=== PATIENT | female | born 1995 | race Caucasian/White ===

== ENCOUNTER 2024-04-21 17:53 | Emergency (ER) | payer OTHER, SELFPAY ==
[2024-04-21] VITALS (15 sets, daily range): BP systolic 132–147; BP diastolic 82–105; PULSE 65–85; RESP 16; TEMP 36.8; O2SAT 97–100; BMI 39.9
--- NOTE | 2024-04-21 18:20 | CRLHL7_ITS ---
For Patients: As a result of the Century Cures Act, medical imaging exams and procedure reports are released immediately into your electronic medical record. You may view this report before your referring provider. If you have questions, please contact your health care provider. 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 No suspicious hepatic lesions. Status post cholecystectomy. No biliary ductal dilatation. The spleen, pancreas, and bilateral adrenal glands are unremarkable. The kidneys are normal in size and perfused in a normal fashion. There is no suspicious enhancing renal mass. Simple appearing renal cysts bilaterally. No renal calculi or hydroureteronephrosis. The bladder is unremarkable in appearance. Status post hysterectomy. The left ovary is unremarkable in appearance. There is a large right simple appearing ovarian cyst measuring approximately 5.1 centimeters in greatest dimension. There is no evidence of bowel obstruction or inflammation. The appendix is normal. Few colonic diverticula without CT evidence of acute diverticulitis. No significant free fluid. No free air. No abscess. No abdominopelvic lymphadenopathy. Questionable mild narrowing at the origin of the celiac axis; otherwise, the vasculature is unremarkable. Soft tissue/musculoskeletal: Unremarkable Impression: 1. No CT evidence of an acute process involving the abdomen or pelvis. 2. Simple appearing right ovarian cyst measuring 5.1 centimeters in greatest dimension. O-RADS 2 - almost certainly benign. Recommend follow-up pelvic ultrasound in 8-12 weeks for reassessment. Please note that all CT scans at this facility use dose modulation, iterative reconstruction, and/or weight-based dosing when appropriate to reduce radiation dose to as low as reasonably achievable. Dictated by Jamar Cross MD @ 04/21/2024 7:34:40 PM (Electronically Signed)
--- NOTE | 2024-04-21 18:22 | ED_ITS ---
HPI - Abdominal Pain General Chief Complaint: Abdominal Pain Stated Complaint: Abdominal pain Time Seen by Provider: 04/21/24 17:56 History of Present Illness HPI narrative: This 29-year-old female comes in reporting right upper quadrant abdominal pain over the past day or so. She states that there is always an element of pain there but she definitely gets some spikes of increased pain. She reports that taking food seems to make the pain worse. She has had a cholecystectomy. She also had a hysterectomy done 4 months ago and since then has had several complications with abscess and repeat surgery. She arrives here with normal vital signs. Related Data Home Medications ?Medication ?Instructions ?Recorded ?Confirmed lisinopril 20 1 tab PO DAILY 03/18/24 04/21/24 mg-hydrochlorothiazide 12.5 mg tablet methylphenidate HCl 20 mg biphasic 40 mg PO DAILY 03/18/24 04/21/24 50-50 capsule,extended release albuterol sulfate 90 mcg/actuation 1 - 2 puff inhalation Q4H PRN 04/21/24 04/21/24 aerosol inhaler (Ventolin HFA) cetirizine 10 mg tablet 10 mg PO DAILY 04/21/24 04/21/24 fluticasone 100 mcg-salmeterol 50 1 ea inhalation BID 04/21/24 04/21/24 mcg/dose blistr powdr for inhalation (Nichol Butt) Previous Rx's ?Medication ?Instructions ?Recorded hydrocodone 5 mg-acetaminophen 325 1 tab PO Q4-6H PRN pain #15 tabs 04/21/24 mg tablet ketorolac 10 mg tablet 10 mg PO Q8H 5 days #15 tabs 04/21/24 ondansetron HCl 4 mg tablet 4 mg PO Q6H #10 tabs 04/21/24 Allergies Allergy/AdvReac Type Severity Reaction Status Date / Time metformin Allergy Mild Rash Verified 04/21/24 17:57 Review of Systems Status of ROS Reports: 10 or more systems reviewed and unremarkable except as noted in History and below Narrative Constitutional: No fevers, no weight gain or loss. Eyes: No discharge. No vision changes. HENT: No congestion, no sore throat, no ear pain. Cardiovascular: No chest pain, no palpitations. Respiratory: No shortness of breath, no wheezes, no cough. Gastrointestinal: No vomiting, no diarrhea. Abdominal pain as described above. Genitourinary: No dysuria, no hematuria. Musculoskeletal: Normal range of motion. Skin: No rashes, no pruritis. Neurological: No dizziness, weakness, sensory change, speech change. Endo/Heme/Allergies: No bruising or bleeding. No polydipsia. Pysch: no suicidality, no anxiety, no insomnia. All other systems reviewed and are negative. PFSH PFS Social History Smoking Status: Never smoker How often do you have a drink containing alcohol: 2-4 times a month AUDIT-C Alcohol total score: 2 Non-prescribed substance use: denies use Exam Narrative: Exam Narrative: Constitutional: Well-developed, well-nourished, no acute distress. HEENT: Normocephalic, atraumatic. Neck: Normal range of motion. Nontender. Supple. Heart: Regular. No murmurs. Normal rate. Intact distal pulses. Lungs: Clear to auscultation. No chest discomfort. No wheezes, rhonchi, or rales. Abdomen: Normal bowel sounds. Tenderness located in the right upper quadrant. No rebound tenderness. Genitalia: Deferred. Back: No midline tenderness. Normal range of motion. Extremities: Normal range of motion. No injury. Skin: Intact. No rash. Warm. No erythema or pallor. Neurologic: No altered sensation. No weakness. Alert and oriented. Psychiatric: No suicidality. No anxiety or depression. No insomnia. Nursing notes and vitals signs are reviewed. Const: Vital Signs, click to edit/add: Vital Signs - 24 hr 04/21/24 17:58 04/21/24 18:10 04/21/24 18:11 Temperature 98.2 F Pulse Rate 81 78 Pulse Rate [Pulse Oximeter] 85 Respiratory Rate 16 Blood Pressure 144/105 H Blood Pressure [Ri ght Upper Arm] 147/104 H Pulse Oximetry 99 97 97 Oxygen Delivery Me thod Room Air 04/21/24 18:15 04/21/24 18:32 04/21/24 18:33 Temperature Pulse Rate 81 79 Pulse Rate [Pulse Oximeter] Respiratory Rate Blood Pressure 140/85 H Blood Pressure [Ri ght Upper Arm] Pulse Oximetry 97 97 Oxygen Delivery Me thod 04/21/24 18:52 04/21/24 19:00 04/21/24 19:02 Temperature Pulse Rate 82 71 68 Pulse Rate [Pulse Oximeter] Respiratory Rate Blood Pressure 134/82 Blood Pressure [Ri ght Upper Arm] Pulse Oximetry 99 98 98 Oxygen Delivery Me thod 04/21/24 19:15 04/21/24 19:30 Temperature Pulse Rate 71 69 Pulse Rate [Pulse Oximeter] Respiratory Rate Blood Pressure Blood Pressure [Ri ght Upper Arm] Pulse Oximetry 99 98 Oxygen Delivery Me thod Course Vital Signs Vital signs: Initial Vital Signs Temperature 98.2 F 04/21/24 17:58 Temperature Source Temporal Artery Scan 04/21/24 17:58 Pulse Rate 85 04/21/24 17:58 Respiratory Rate 16 04/21/24 17:58 Blood Pressure 147/104 H 04/21/24 17:58 Blood Pressure Mean 118 H 04/21/24 17:58 Blood Pressure Position High-Fowlers 04/21/24 17:58 Pulse Oximetry 99 04/21/24 17:58 Oxygen Delivery Method Room Air 04/21/24 17:58 Vital Signs Temperature 98.2 F 04/21/24 17:58 Pulse Rate 85 04/21/24 17:58 Respiratory Rate 16 04/21/24 17:58 Blood Pressure 147/104 H 04/21/24 17:58 Pulse Oximetry 99 04/21/24 17:58 Oxygen Delivery Method Room Air 04/21/24 17:58 Temperature 98.2 F 04/21/24 17:58 Pulse Rate 69 04/21/24 19:30 Respiratory Rate 16 04/21/24 17:58 Blood Pressure 134/82 04/21/24 19:02 Pulse Oximetry 98 04/21/24 19:30 Oxygen Delivery Method Room Air 04/21/24 17:58 Medications Administered Medications: Discontinued Medications Generic Name Dose Route Start Last Admin Trade Name Freq PRN Reason Stop Dose Admin Ketorolac Tromethamine 30 mg 04/21/24 18:20 04/21/24 18:38 Ketorolac 30 Mg/Ml Inj IVP 04/21/24 18:21 30 mg ONCE ONE Administration Ondansetron HCl 4 mg 04/21/24 18:20 04/21/24 18:38 Ondansetron 2 Mg/Ml Inj IVP 04/21/24 18:21 4 mg ONCE ONE Administration MDM - Abdominal Pain MDM Narrative Medical decision making narrative: This patient comes in with abdominal pain in the right side of her abdomen. She has extra concerned because of several complications of hysterectomy that occurred over the past several months where she had repeat surgeries due to abscess formation. She arrives here with normal vital signs and states that her symptoms are different than which she was experiencing previously. She has had her gallbladder out. An IV was established and CT imaging is obtained of the abdomen and pelvis. This shows no acute findings except for the presence of a 5 cm cyst on the right ovary. The patient does have a history of PCOS. There are no other findings to explain the patient's pain. This was very reassuring to the patient along with normal vital signs and lab results. She is okay to be discharged home. I did provide prescriptions for Toradol, Winkelman, and Zofran. Lab Data Labs: Lab Results 04/21/24 Range/Units 18:30 WBC 9.41 (4.50-11.00) K/uL RBC 4.53 (4.00-5.20) m/uL Hgb 12.9 (12.0-16.0) gm/dL Hct 38.3 (33.0-51.0) % MCV 85 (80-100) fL MCH 29 (26-34) pg MCHC 34 (32-36) gm/dL RDW Coeff of Carl 13.3 (11.5-15.5) % Plt Count 243 (140-440) K/uL Neut % (Auto) 59.5 (42.0-72.0) % Lymph % (Auto) 29.6 (20-44) % Mccormick % (Auto) 7.0 (0.0-11.0) % Eos % (Auto) 3.2 (0.0-7.0) % Baso % (Auto) 0.4 (0.0-3.0) % Neut # (Auto) 5.59 (1.7-7.0) K/uL Lymph # (Auto) 2.79 (0.90-2.90) K/uL Mccormick # (Auto) 0.70 (0.00-0.90) K/UL Eos # (Auto) 0.30 (0.00-0.50) K/uL Baso # (Auto) 0.04 (0.00-0.30) K/uL Abs Immat Gran (auto) 0.03 (0.00-0.30) K/uL Imm/Tot Granulo (auto) 0.3 % Sodium 136 (135-149) mmol/L Potassium 3.7 (3.6-5.1) mmol/L Chloride 104 (96-114) mmol/L Carbon Dioxide 25 (20-32) mmol/L Anion Gap 7 (7-15) mEq/L BUN 14 (5-24) mg/dL Creatinine 0.8 (0.5-1.5) mg/dL Estimated Creat Clear 85.06 Estimated GFR 102 ml/min Glucose 96 (60-115) mg/dL Calcium 9.5 (8.4-10.6) mg/dL Imaging Data CT scan - abdomen: Radiologist's impression: 1. No CT evidence of an acute process involving the abdomen or pelvis. 2. Simple appearing right ovarian cyst measuring 5.1 centimeters in greatest dimension. O-RADS 2 - almost certainly benign. Recommend follow-up pelvic ultrasound in 8-12 weeks for reassessment. Discharge Plan Discharge Clinical Impression: Abdominal pain, Ovarian cyst Patient Disposition: Home, Self-Care Condition: Stable Additional Instructions: Take medications as needed and indicated. Follow up with MD or return if worsening. Prescriptions: New hydrocodone-acetaminophen 5-325 mg tablet 1 tab PO Q4-6H PRN (Reason: pain) Qty: 15 0RF ondansetron HCl 4 mg tablet 4 mg PO Q6H Qty: 10 0RF ketorolac 10 mg tablet 10 mg PO Q8H 5 Days Qty: 15 0RF No Action lisinopril-hydrochlorothiazide 20-12.5 mg tablet 1 tab PO DAILY methylphenidate HCl 20 mg capsule,ER biphasic 50-50 40 mg PO DAILY cetirizine 10 mg tablet 10 mg PO DAILY fluticasone propion-salmeterol [Wixela Inhub] 100-50 mcg/dose blister with device 1 ea INHALATION BID albuterol sulfate [Ventolin HFA] 90 mcg/actuation HFA aerosol inhaler 1 - 2 puff INHALATION Q4H PRN Follow Up/Referrals: Provider,Not a Local [Primary Care Provider] - Stand Alone Forms: [employer] Info Instructions
[2024-04-21 18:38] LABS: Basophils Absolute Auto 0.04 K/uL (0.00-0.30); Basophils Percent Auto 0.4 % (0.0-3.0); Eosinophils Percent Auto 3.2 % (0.0-7.0); Hematocrit 38.3 % (33.0-51.0); Hemoglobin* 12.9 gm/dL (12.0-16.0); Immature Granulocytes Abs Auto 0.03 K/uL (0.00-0.30); Immature Granulocytes Pct Auto 0.3 %; Lymphocytes Absolute Auto 2.79 K/uL (0.90-2.90); Lymphocytes Percent Auto 29.6 % (20-44); Mean Corpuscular HGB Conc 34 gm/dL (32-36); Mean Corpuscular Hemoglobin 29 pg (26-34); Mean Corpuscular Volume 85 fL (80-100); Neutrophils Absolute Auto 5.59 K/uL (1.7-7.0); Neutrophils Percent Auto 59.5 % (42.0-72.0); Platelet Count* 243 K/uL (140-440); RDW Coefficient of Variation % 13.3 % (11.5-15.5); Red Blood Count 4.53 m/uL (4.00-5.20); White Blood Count* 9.41 K/uL (4.50-11.00)
[2024-04-21] MEDS: KETOROLAC 30 MG/ML inj IVP (18:38)
[2024-04-21] MEDS: ONDANSETRON 2 MG/ML inj 4 MG IVP (18:38)
[2024-04-21 18:39] LABS: Slide Review Reflex No
[2024-04-21 18:53] LABS: Chloride* 104 mmol/L (96-114)
[2024-04-21 18:54] LABS: Potassium* 3.7 mmol/L (3.6-5.1); Sodium* 136 mmol/L (135-149)
[2024-04-21 18:56] LABS: Creatinine* 0.8 mg/dL (0.5-1.5); Est. Creatinine Clearance* 85.06; Estimated Glomerular Filt Rate 102 ml/min
[2024-04-21 18:57] LABS: Anion Gap 7 mEq/L (7-15); Blood Urea Nitrogen* 14 mg/dL (5-24); Calcium* 9.5 mg/dL (8.4-10.6); Carbon Dioxide* 25 mmol/L (20-32); Glucose* 96 mg/dL (60-115)
== END 2024-04-21 20:29 | disposition home or self-care (01) ==
PROVIDERS: Emergency Provider Emergency Medicine Emergency Medical Services
DX: N83.201 Unspecified ovarian cyst, right side (principal)
CPT/HCPCS: 36415; 74177; 80048; 85025; 99283; 99284; J1885; J2405; Q9967

== ENCOUNTER 2024-07-27 13:12 | Emergency (ER) | payer OTHER, SELFPAY ==
[2024-07-27 13:17] VITALS: BP 104/61; PULSE 81; RESP 16; TEMP 36.6; O2SAT 97; BMI 38.6
--- NOTE | 2024-07-27 13:28 | ED_ITS ---
HPI - Skin/Abscess/Foreign Bdy General Time Seen by Provider: 13:28 Date Seen: 07/27/24 Chief complaint: Skin/Abscess/Foreign Body Stated complaint: Possible L middle finger infection Time Seen by Provider: 07/27/24 13:14 Source: patient and RN notes reviewed Mode of arrival: ambulatory Limitations: no limitations History of Present Illness HPI narrative: This 29-year-old female is coming in with complaint of left 3rd finger infection. She is not sure what happened. 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 She however does not remember getting hurt last week. She has had no fevers or chills. She is status post hysterectomy, thus, no chance for . She states her tetanus is up-to-date. Finger has been progressively becoming more painful, swollen, read. She is getting throbbing pain that radiates up the finger now. She did try to go to urgent care but they were not accepting more patients, called around to other urgent cares and it was the same scenario. Thus, she did come here. Related Data Home Medications ?Medication ?Instructions ?Recorded ?Confirmed lisinopril 20 1 tab PO DAILY 03/18/24 04/21/24 mg-hydrochlorothiazide 12.5 mg tablet methylphenidate HCl 20 mg biphasic 40 mg PO DAILY 03/18/24 04/21/24 50-50 capsule,extended release albuterol sulfate 90 mcg/actuation 1 - 2 puff inhalation Q4H PRN 04/21/24 04/21/24 aerosol inhaler (Ventolin HFA) cetirizine 10 mg tablet 10 mg PO DAILY 04/21/24 04/21/24 fluticasone 100 mcg-salmeterol 50 1 ea inhalation BID 04/21/24 04/21/24 mcg/dose blistr powdr for inhalation (Wixela Inhub) Previous Rx's ?Medication ?Instructions ?Recorded amoxicillin 875 mg-potassium 1 tab PO BID #14 tabs 07/27/24 clavulanate 125 mg tablet Allergies Allergy/AdvReac Type Severity Reaction Status Date / Time metformin Allergy Mild Rash Verified 04/21/24 17:57 Review of Systems Narrative: As per HPI. PFSH PFSH Social History Smoking Status: Never smoker How often do you have a drink containing alcohol: 2-4 times a month AUDIT-C Alcohol total score: 2 Non-prescribed substance use: denies use Exam Const: Vital Signs, click to edit/add: Vital Signs - 24 hr 07/27/24 13:17 Temperature 97.8 F Pulse Rate [Pulse Oximeter] 81 Respiratory Rate 16 Blood Pressure [Ri ght Upper Arm] 104/61 Pulse Oximetry 97 Oxygen Delivery Me thod Room Air This 29-year-old patient is alert, interactive, no apparent distress. Ambulatory into the ED of her own accord. Her left 3rd finger has swelling distally along the pad. Distal finger itself is swollen, red, warm. She states it is tender to touch. In the medial pad of this 3rd finger there is a little scab. Did try to unroof the scab but there is no drainage. The nail bed seems to be unaffected and appears normal. She has full range of motion of the finger, neurovascular is intact. No vesicles noted. Documenting provider has reviewed patient's vital signs: yes Course Vital Signs Vital signs: Initial Vital Signs Temperature 97.8 F 07/27/24 13:17 Temperature Source Temporal Artery Scan 07/27/24 13:17 Pulse Rate 81 07/27/24 13:17 Respiratory Rate 16 07/27/24 13:17 Blood Pressure 104/61 07/27/24 13:17 Blood Pressure Mean 75 07/27/24 13:17 Blood Pressure Position Sitting 07/27/24 13:17 Pulse Oximetry 97 07/27/24 13:17 Oxygen Delivery Method Room Air 07/27/24 13:17 Vital Signs Temperature 97.8 F 07/27/24 13:17 Pulse Rate 81 07/27/24 13:17 Respiratory Rate 16 07/27/24 13:17 Blood Pressure 104/61 07/27/24 13:17 Pulse Oximetry 97 07/27/24 13:17 Oxygen Delivery Method Room Air 07/27/24 13:17 Temperature 97.8 F 07/27/24 13:17 Pulse Rate 81 07/27/24 13:17 Respiratory Rate 16 07/27/24 13:17 Blood Pressure 104/61 07/27/24 13:17 Pulse Oximetry 97 07/27/24 13:17 Oxygen Delivery Method Room Air 07/27/24 13:17 Discharge Plan Discharge Clinical Impression: Cellulitis of finger of left hand Patient Disposition: Home, Self-Care Condition: Stable Instructions: Cellulitis (ED) Additional Instructions: Start antibiotics and take as prescribed. Do recommend warm packs or warm soaks to this finger, elevate to help decrease pain. Can use Tylenol and ibuprofen as needed for pain control. If you feel the infection is worsening, have further concerns, please seek re-evaluation. Activity Level: No Restrictions Prescriptions: New amoxicillin-pot clavulanate 875-125 mg tablet 1 tab PO BID Qty: 14 0RF No Action lisinopril-hydrochlorothiazide 20-12.5 mg tablet 1 tab PO DAILY methylphenidate HCl 20 mg capsule,ER biphasic 50-50 40 mg PO DAILY cetirizine 10 mg tablet 10 mg PO DAILY fluticasone propion-salmeterol [Wixela Inhub] 100-50 mcg/dose blister with device 1 ea INHALATION BID albuterol sulfate [Ventolin HFA] 90 mcg/actuation HFA aerosol inhaler 1 - 2 puff INHALATION Q4H PRN Follow Up/Referrals: Provider,Not a Local [Primary Care Provider] - Stand Alone Forms: [facility] Info Instructions
== END 2024-07-27 13:45 | disposition home or self-care (01) ==
PROVIDERS: Emergency Provider Family Medicine
DX: L03.012 Cellulitis of left finger (principal)
CPT/HCPCS: 99282; 99283

== ENCOUNTER 2024-08-06 18:30 | Emergency (ER) | payer OTHER, SELFPAY ==
[2024-08-06 18:39] VITALS: BP 130/91; PULSE 80; RESP 18; TEMP 37.7; O2SAT 95; BMI 39.0
--- NOTE | 2024-08-06 19:06 | ED.GENADULT ---
HPI - General Adult General Time Seen by Provider: 19:06 Date Seen: 08/06/24 Chief complaint: Hip Injury/Pain Stated complaint: L leg hip pain, swelling Time Seen by Provider: 08/06/24 19:06 Source: patient Mode of arrival: ambulatory Limitations: no limitations History of Present Illness HPI narrative: Kody is a very pleasant 29-year-old female with past history of left knee injury and meniscal reimplantation who comes to the emergency room with left hip and left calf pain. Anisa states for the past few weeks she has noticed discomfort in her left hip worsened by movement and weight-bearing. 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 Frequently she has to do specific holds for safety during the day. However, she does not recall any specific moment where she may have been injured. She has not hurt her hip in the past. 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 Today she notes that it noon the pain suddenly became much worse and this was associated with would appear to be leg swelling. She states that she has pain and swelling in her left calf. She notes that she has been limping as well. She has not taken anything for discomfort prior to arrival. She had been using ibuprofen and with that in rest and icing after she we get home from work this did seem to help. Today even sitting is causing her discomfort. Patient has not had any fever, unusual weight loss, denies any possibility of . Related Data Home Medications ?Medication ?Instructions ?Recorded ?Confirmed lisinopril 20 1 tab PO DAILY 03/18/24 04/21/24 mg-hydrochlorothiazide 12.5 mg tablet methylphenidate HCl 20 mg biphasic 40 mg PO DAILY 03/18/24 04/21/24 50-50 capsule,extended release albuterol sulfate 90 mcg/actuation 1 - 2 puff inhalation Q4H PRN 04/21/24 04/21/24 aerosol inhaler (Ventolin HFA) cetirizine 10 mg tablet 10 mg PO DAILY 04/21/24 04/21/24 fluticasone 100 mcg-salmeterol 50 1 ea inhalation BID 04/21/24 04/21/24 mcg/dose blistr powdr for inhalation (Nichol Butt) Previous Rx's ?Medication ?Instructions ?Recorded amoxicillin 875 mg-potassium 1 tab PO BID #14 tabs 07/27/24 clavulanate 125 mg tablet methylprednisolone 4 mg tablets in See Rx Instructions PO .COMPLEX 08/06/24 a dose pack (Medrol (Gil)) #21 ea Allergies Allergy/AdvReac Type Severity Reaction Status Date / Time metformin Allergy Mild Rash Verified 04/21/24 17:57 Review of Systems Status of ROS: Reports: 6 or more systems reviewed and unremarkable except as noted in History and below PFSH PFS Social History Smoking Status: Never smoker Do you use any of these nicotine containing products: None Second hand tobacco smoke exposure: No How often do you have a drink containing alcohol: 2-4 times a month How many standard drinks containing alcohol do you have on a typical day: 1 or 2 How often do you have six or more drinks on one occasion: Never AUDIT-C Alcohol total score: 2 Non-prescribed substance use: denies use service: No Exam Narrative: Exam Narrative: Patient is alert and oriented. Very pleasant well-spoken woman. Somewhat guarded in her movement. No pain with palpation over the low back. Pain noted posterior to the greater trochanter. No significant discomfort over the greater trochanter. Range of motion is full. She does have discomfort with at the and pain in the left calf. I do not appreciate a fullness or changed in size. Distally she is able to move her ankles and toes without difficulty. She has pedal pulses that are strong and equal bilaterally. Const: Vital Signs, click to edit/add: Vital Signs - 24 hr 08/06/24 18:39 Temperature 99.9 F H Pulse Rate [Pulse Oximeter] 80 Respiratory Rate 18 Blood Pressure [Le ft Upper Arm] 130/91 H Pulse Oximetry 95 Oxygen Delivery Me thod Room Air Documenting provider has reviewed patient's vital signs: yes Course Course ED Course: Differential diagnosis includes but is not limited to labral tear, septic joint, arthritis, DVT, radiculitis, musculoskeletal discomfort. At this time will give patient dose of dexamethasone 10 mg IV, Toradol 15 mg IV. Will obtain x-ray of the left hip and ultrasound of the left leg. Reevaluation(s) Reevaluation #1: Patient has had only minimal improvement of her pain. Have given her morphine 4 mg IV. X-ray of the hip is reassuring at this time currently waiting on ultrasound. Reevaluation #2: Ultrasound of the leg is negative for DVT. Patient noted that pain had improved but is now returning and will give her additional 2 mg IV. Vital Signs Vital signs: Initial Vital Signs Temperature 99.9 F H 08/06/24 18:39 Temperature Source Temporal Artery Scan 08/06/24 18:39 Pulse Rate 80 08/06/24 18:39 Pulse Rhythm Regular 08/06/24 18:39 Respiratory Rate 18 08/06/24 18:39 Blood Pressure 130/91 H 08/06/24 18:39 Blood Pressure Mean 104 08/06/24 18:39 Blood Pressure Position Supine 08/06/24 18:39 Pulse Oximetry 95 08/06/24 18:39 Oxygen Delivery Method Room Air 08/06/24 18:39 Vital Signs Temperature 99.9 F H 08/06/24 18:39 Pulse Rate 80 08/06/24 18:39 Respiratory Rate 18 08/06/24 18:39 Blood Pressure 130/91 H 08/06/24 18:39 Pulse Oximetry 95 08/06/24 18:39 Oxygen Delivery Method Room Air 08/06/24 18:39 Temperature 99.9 F H 08/06/24 18:39 Pulse Rate 80 08/06/24 18:39 Respiratory Rate 18 08/06/24 18:39 Blood Pressure 130/91 H 08/06/24 18:39 Pulse Oximetry 95 08/06/24 18:39 Oxygen Delivery Method Room Air 08/06/24 18:39 Medications Administered Medications: Generic Name Dose Route Start Last Admin Trade Name Freq PRN Reason Stop Dose Admin Morphine Sulfate 2 mg 08/06/24 22:19 08/06/24 22:26 Morphine 2 Mg/Ml Inj IVP 08/06/24 22:20 2 mg ONCE ONE Administration Discontinued Medications Generic Name Dose Route Start Last Admin Trade Name Freq PRN Reason Stop Dose Admin Dexamethasone 10 mg 08/06/24 19:16 08/06/24 20:29 Dexamethasone 10 Mg/Ml Inj IVP 08/06/24 19:17 10 mg ONCE ONE Administration Ketorolac Tromethamine 15 mg 08/06/24 19:16 08/06/24 20:29 Ketorolac 15 Mg/Ml Inj IVP 08/06/24 19:17 15 mg ONCE ONE Administration Morphine Sulfate 4 mg 08/06/24 20:44 08/06/24 20:55 Morphine 4 Mg/Ml Inj IVP 08/06/24 20:45 4 mg ONCE ONE Administration Medical Decision Making MDM Narrative Medical decision making narrative: 1. Left hip pain-I strongly suspect that this may be a labral tear. Patient does not have any red flag symptoms to suggest infection, denies fever, she has good external range of motion but has increased pain with internal rotation. She has otherwise has good strength and pedal pulses. Patient will continue on Medrol Dosepak tomorrow. She may use ibuprofen Tylenol as needed for discomfort. I have given her 12 tablets of [place] 5/325 to be used 1-2 every 6 hours as needed for discomfort not relieved by ibuprofen. She is advised that this may cause her constipation. She is also advised that I would not be able to refill this prescription or normal she received any more narcotics from the ED for this particular problem. I did check the CREDIT REVIEW OFFICER and she does have frequent prescriptions for narcotics. The most recent was 07/28/2030 tablets of oxycodone for 4 days and on 07/24/2030 tablets of oxycodone for 4 days. She tells me that this is for kidney cyst that burst. My end do not have any documentation of this but I would does appear that it is from 1 physician. She denies a history of Suboxone use or addictions. Given the CREDIT REVIEW OFFICER findings however I do feel it best that no further narcotics be issued by S and that all further narcotics be issued by 1 provider. She primarily sees in [place]. Patient is advised to follow-up with orthopedics. I suspect she may need an MRI. Given location of discomfort exam I do not think that this is trochanteric bursitis. There is no evidence of DVT. 2. Disposition-home at this time. Return to the emergency room for fever, chills, worsening symptoms and as needed. Patient will use crutches that she has at home to limit weight-bearing. Medical Records Medical records reviewed: Yes I reviewed the patient's medical records Imaging Data Left hip x-ray: Attestation: I have reviewed the pertinent imaging results. My impression: I do not note any acute findings. Radiologist's impression: Bone: No acute fractures or aggressive bone lesions are identified. Joint: The hip joints are unremarkable. The visualized sacroiliac joints are unremarkable in appearance. The pubic symphysis is normal in appearance. Soft tissue: Unremarkable. No radiopaque foreign bodies are seen. IMPRESSION: 1. No acute osseous injuries or abnormalities are noted. Venous US: Attestation: I have reviewed the pertinent imaging results. Radiologist's impression: Patent bilateral common femoral vein, superficial femoral vein, popliteal vein, visualized calf veins. IMPRESSION: No deep venous thrombosis is identified in the lower extremities. Discharge Plan Discharge Clinical Impression: Acute pain of left hip Patient Disposition: Home, Self-Care Condition: Improved Additional Instructions: You received your 1st dose of a steroid tonight. Start your Medrol Dosepak tomorrow. I have sent this to the pharmacy in [place]. If given you a few doses of [place] to be used to help facilitate with sleep. Suggest icing and limited movement. I do think he will need to follow-up with orthopedics for re-evaluation and possible MRI. The phone number for our orthopedic clinic is [phone]. Return for worsening symptoms and as needed. Prescriptions: New methylprednisolone [Medrol (Gil)] 4 mg tablets,dose pack See Rx Instructions .ROUTE .COMPLEX Qty: 21 0RF Rx Instructions: orally per package directions No Action lisinopril-hydrochlorothiazide 20-12.5 mg tablet 1 tab PO DAILY methylphenidate HCl 20 mg capsule,ER biphasic 50-50 40 mg PO DAILY amoxicillin-pot clavulanate 875-125 mg tablet 1 tab PO BID Qty: 14 0RF cetirizine 10 mg tablet 10 mg PO DAILY fluticasone propion-salmeterol [Wixela Inhub] 100-50 mcg/dose blister with device 1 ea INHALATION BID albuterol sulfate [Ventolin HFA] 90 mcg/actuation HFA aerosol inhaler 1 - 2 puff INHALATION Q4H PRN Follow Up/Referrals: Provider,Not a Local [Primary Care Provider] - Stand Alone Forms: [facility] Info Instructions
--- NOTE | 2024-08-06 19:16 | CRLHL7_ITS ---
For Patients: As a result of the Century Cures Act, medical imaging exams and procedure reports are released immediately into your electronic medical record. You may view this report before your referring provider. If you have questions, please contact your health care provider. INDICATION: Left hip pain TECHNIQUE: Pelvis radiograph, Hip radiograph 3 views left COMPARISON: None FINDINGS: Bone: No acute fractures or aggressive bone lesions are identified. Joint: The hip joints are unremarkable. The visualized sacroiliac joints are unremarkable in appearance. The pubic symphysis is normal in appearance. Soft tissue: Unremarkable. No radiopaque foreign bodies are seen. IMPRESSION: 1. No acute osseous injuries or abnormalities are noted. Dictated by: Kevin Rogers MD @ 08/06/2024 19:57:00 (Electronically Signed)
--- NOTE | 2024-08-06 19:16 | CRLHL7_ITS ---
For Patients: As a result of the Century Cures Act, medical imaging exams and procedure reports are released immediately into your electronic medical record. You may view this report before your referring provider. If you have questions, please contact your health care provider. INDICATION: Leg pain and swelling. TECHNIQUE: Ultrasound venous duplex bilateral lower extremity. Compression venous exam was performed using bianchi-scale, color Doppler, and spectral Doppler analysis. COMPARISON: None. FINDINGS: Patent bilateral common femoral vein, superficial femoral vein, popliteal vein, visualized calf veins. IMPRESSION: No deep venous thrombosis is identified in the lower extremities. Dictated by Earnest Etienne MD @ 08/06/2024 9:28:51 PM (Electronically Signed)
[2024-08-06] MEDS: dexAMETHasone 10 MG/ML inj IVP (20:29)
[2024-08-06] MEDS: KETOROLAC 15 MG/ML inj IVP (20:29)
[2024-08-06] MEDS: MORPHINE 4 MG/ML INJ IVP (20:55)
[2024-08-06] MEDS: MORPHINE 2 MG/ML inj IVP (22:26)
== END 2024-08-06 22:39 | disposition home or self-care (01) ==
PROVIDERS: Emergency Provider Family Medicine
DX: M25.552 Pain in left hip (principal)
CPT/HCPCS: 73502; 93970; 96374; 96375; 99283; 99284; J1100; J1885; J2270